=== PATIENT | female | born 1995 | race Caucasian/White ===

== ENCOUNTER 2020-05-23 18:48 | Emergency (ER) | payer OTHER ==
[~2020-05-23] VITALS: Ht 154.9 cm; Wt 62.6 kg
[~2020-05-23 18:48] MED LIST: BIRTH CONTROL; HYDROCODONE-AP1 EAC6 PO; HYDROCODONE-APA1 TA1 PO; LEVSIN-SL0.125 MG PO; MICROGESTIN FE1 EAC1 PO; MUSCLE RELAXER; ONDANSETRON HCL4 M2 PO; PERCOCET 5-3251 EACH PO; TRAMADOL 50 MG50 MG PO; URIBEL CAPSULE1 EACH PO; ZOFRAN ODT4 MG DISSOLVE
[2020-05-23] MEDS ORDERED: MOBIC15 MG PO (22:53)
[2020-05-23] MEDS ORDERED: NORCO 5-325 TA1 EAC2 PO (23:06)
[2020-05-23 23:34] VITALS: BP 110/74
== END 2020-05-23 23:34 | disposition home or self-care (01) ==
LOC: ER 18:48
DX: S93.401A Sprain of unspecified ligament of right ankle, initial encounter (principal); W10.9XXA Fall (on) (from) unspecified stairs and steps, initial encounter; Y93.89 Activity, other specified; Y92.89 Other specified places as the place of occurrence of the external cause; Y99.8 Other external cause status